=== PATIENT | female | born 1990 | race Caucasian/White ===

== ENCOUNTER 2020-07-21 02:29 | Emergency (ER) | payer OTHER ==
--- NOTE | 2020-07-21 02:51 | ERPHSYRPT ---
- History of Present Illness Time Seen by Provider: 07/21/20 02:50 Source: patient Exam Limitations: no limitations Patient Subjective Stated Complaint: Acid reflux. Left arm tingling. Physician History: She is 22 weeks having a flare-up of her GERD symptoms. She tried OTC antacids with little relief. NO chest pain or dyspnea. Only other c/o is left arm tingling, no head or neck pain. Full use of left arm, may have slept on it. Timing/Duration: hour(s) (few) Severity: moderate Modifying Factors: Improves With: medication (OTC antacids helping a little) Associated Symptoms: heartburn, other (tingling left arm) Allergies/Adverse Reactions: No Known Drug Allergies Allergy (Unverified 07/21/20 02:36) Home Medications: No Reportable Medications [No Reported Medications] 07/21/20 [History] Travel Risk - International Travel Have you traveled outside of the country in past 3 weeks: No - Coronavirus Screening Are you exhibiting any of the following symptoms?: No Close contact with a COVID-19 positive Pt in past 14-21 Days: No - Review of Systems Constitutional: No Symptoms Eyes: No Symptoms Ears, Nose, & Throat: No Symptoms Respiratory: No Symptoms Cardiac: No Symptoms Abdominal/Gastrointestinal: Other (GEERD) Genitourinary Symptoms: No Symptoms Musculoskeletal: No Symptoms Skin: No Symptoms, Rash Neurological: Parasthesia (left arm, partial) Psychological: No Symptoms Endocrine: No Symptoms Hematologic/Lymphatic: No Symptoms Immunological/Allergic: No Symptoms All Other Systems: Reviewed and Negative - Past Medical History Pertinent Past Medical History: No Neurological History: No Pertinent History ENT History: No Pertinent History Cardiac History: No Pertinent History Respiratory History: No Pertinent History Endocrine Medical History: No Pertinent History Musculoskeletal History: No Pertinent History GI Medical History: GERD History: No Pertinent History Psycho-Social History: No Pertinent History Female Reproductive Disorders: No Pertinent History - Past Surgical History Past Surgical History: No - Social History Smoking Status: Never smoker Significant Family History: no pertinent family hx - Nursing Vital Signs Nursing Vital Signs: Initial Vital Signs Pulse Rate 90 07/21/20 02:36 Respiratory Rate 18 07/21/20 02:36 Blood Pressure 140/86 07/21/20 02:36 O2 Sat by Pulse Oximetry 98 07/21/20 02:36 Pain Scale Pain Intensity 3 - Physical Exam General Appearance: no apparent distress, alert, anxiety Eye Exam: PERRL/EOMI Ears, Nose, Throat Exam: normal ENT inspection Neck Exam: normal inspection, non-tender Respiratory Exam: normal breath sounds Cardiovascular Exam: regular rate/rhythm, normal heart sounds Gastrointestinal/Abdomen Exam: soft, normal bowel sounds, other (gravid) Pelvic Exam: not done Rectal Exam: not done Back Exam: normal inspection Extremity Exam: normal inspection Neurologic Exam: alert, oriented x 3, cooperative Skin Exam: normal color, warm, dry Lymphatic Exam: No adenopathy SpO2 Interpretation: normal O2 Delivery: Room Air - Course Nursing assessment & vital signs reviewed: Yes Ordered Tests: Medication Summary Discontinued Medications Generic Name Dose Route Start Last Admin Trade Name Harshil PRN Reason Stop Dose Admin Famotidine 40 mg 07/21/20 03:01 07/21/20 03:11 Pepcid 20 Mg PO 07/21/20 03:02 40 mg STAT ONE Administration Famotidine Confirm 07/21/20 03:11 Pepcid 20 Mg Administered 07/21/20 03:12 Dose 40 mg .ROUTE .[employer] ONE - Progress Progress Note: 07/21/20 03:09 GERD symptoms in second trimester . She declined labs. Since OTC antacids not helping, gave pepcid. Mild left arm paresthesias. Suspect that she likely slept on the arm. Normal motor and sensory exam. NVI Counseled pt/family regarding: diagnosis, need for follow-up - Departure Departure Disposition: Home Clinical Impression: Arm paresthesia, left GERD (gastroesophageal reflux disease) Qualifiers: Esophagitis presence: without esophagitis Qualified Code(s): K21.9 - Gastro- esophageal reflux disease without esophagitis Condition: Stable Critical Care Time: No Referrals: LINDA ESTES NP [Primary Care Provider] - Instructions: Acid Reflux and GERD in Adults (DC) Additional Instructions: Pepcid is safe during , along with OTC antacids. Recheck with your OB Dr. The left arm symptoms should improve on their own, tylenol is safe to take if needed.
[2020-07-21] MEDS ORDERED: Pepcid 20 MG PO ONE (03:01)
[2020-07-21] MEDS ORDERED: Pepcid 20 MG ONE (03:11)
[2020-07-21 03:23] VITALS: BP 112/75; PULSE 86; O2SAT 97
== END 2020-07-21 03:27 | disposition home or self-care (01) ==
LOC: ED 02:29
DX: R20.2 Paresthesia of skin (principal); K21.9 Gastro-esophageal reflux disease without esophagitis
CPT/HCPCS: 99283; A9270-GY

== ENCOUNTER 2020-10-13 13:47 | Observation (INO) | payer OTHER ==
[2020-10-13 15:04] VITALS: BP 116/61; PULSE 88
== END 2020-10-13 14:45 | disposition home or self-care (01) ==
LOC: OB 13:47
PROVIDERS: ADMIT Obstetrics & Gynecology; ATTEND Obstetrics & Gynecology
DX: Z34.83 Encounter for supervision of other normal pregnancy, third trimester (principal); Z3A.34 34 weeks gestation of pregnancy
CPT/HCPCS: 59025; G0378

== ENCOUNTER 2020-10-20 09:02 | Observation (INO) | payer OTHER ==
[2020-10-20 09:34] VITALS: BP 122/67; PULSE 111
== END 2020-10-20 09:55 | disposition home or self-care (01) ==
LOC: OB 09:02
PROVIDERS: ADMIT Obstetrics & Gynecology; ATTEND Obstetrics & Gynecology
DX: Z34.83 Encounter for supervision of other normal pregnancy, third trimester (principal); Z3A.35 35 weeks gestation of pregnancy
CPT/HCPCS: 59025; G0378

== ENCOUNTER 2020-10-27 08:53 | Observation (INO) | payer OTHER ==
[2020-10-27 09:19] VITALS: BP 121/71; PULSE 96
--- NOTE | 2020-10-27 11:46 | XRAY ---
Indication: growth. Two-dimensional OB ultrasound performed. Comparison: 2020. Again there is a single viable intrauterine in cephalic presentation. heart rate 147 BPM. 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 Posterior placenta without abruption/previa. BPD measures 9.27 cm corresponding to 37 weeks 5 days. HC measures 32.81 cm corresponding to 37 weeks 2 days. AC measures 32.32 cm corresponding to 36 weeks 2 days. FL measures 6.99 cm corresponding to 35 weeks 6 days. Estimated weight 6 lbs. 7 oz., +/- 1 pound 0 ounces. Approximately 63 percentile. SUSAN is 14.5 cm. Impression: 1. Again single viable intrauterine with mean gestational age 36 weeks 6 days. Normal progression of . 2. Stable incidental nuchal cord and stable head lemon sign commonly associated with Chiari II malformation and spina bifida.
== END 2020-10-27 10:15 | disposition home or self-care (01) ==
LOC: EDSTATUS 08:53 → OB 08:54
PROVIDERS: ADMIT Obstetrics & Gynecology; ATTEND Obstetrics & Gynecology
DX: Z34.83 Encounter for supervision of other normal pregnancy, third trimester (principal); Z3A.36 36 weeks gestation of pregnancy
CPT/HCPCS: 59025; 76816; G0378

== ENCOUNTER 2020-11-03 09:06 | Observation (INO) | payer OTHER ==
[2020-11-03 09:45] VITALS: BP 120/78; PULSE 105
== END 2020-11-03 10:05 | disposition home or self-care (01) ==
LOC: OB 09:06
PROVIDERS: ADMIT Obstetrics & Gynecology; ATTEND Obstetrics & Gynecology
DX: Z34.83 Encounter for supervision of other normal pregnancy, third trimester (principal); Z3A.37 37 weeks gestation of pregnancy
CPT/HCPCS: 59025; G0378

== ENCOUNTER 2020-11-07 01:36 | Observation (INO) | payer OTHER ==
[2020-11-07 02:00] LABS: Appearance CLEAR (CLEAR); Bilirubin NEGATIVE (NEGATIVE); Blood NEGATIVE Ery/ul (0-5); Epithelial Cells RARE /HPF (FEW); Glucose NEGATIVE (NEGATIVE); Ketones NEGATIVE (NEGATIVE); Leukocyte Esterase TRACE (NEGATIVE); Mucus SLIGHT /HPF (NEGATIVE); Nitrite NEGATIVE (NEGATIVE); Protein,Urine Dip NEGATIVE (Negative); Specific Gravity 1.018 (1.005-1.025); Urobilinogen NEGATIVE mg/dL (0-1)
[2020-11-07 02:13] LABS: Amphetamine,Urine NEGATIVE (NEGATIVE); Barbiturate,Urine NEGATIVE (NEGATIVE); Benzodiazepine,Urine NEGATIVE (NEGATIVE); Cocaine,Urine NEGATIVE (NEGATIVE); Methadone,Urine NEGATIVE (NEGATIVE); Opiate,Urine NEGATIVE (NEGATIVE); PCP,Urine NEGATIVE (NEGATIVE); THC,Urine NEGATIVE (NEGATIVE)
[2020-11-07 04:24] VITALS: BP 111/70; PULSE 101; O2SAT 100
== END 2020-11-07 04:45 | disposition home or self-care (01) ==
LOC: UNDOADMOB 01:36 → OB 01:36 → UNDODISOB 04:45
PROVIDERS: ADMIT Obstetrics & Gynecology; ATTEND Obstetrics & Gynecology
DX: Z34.83 Encounter for supervision of other normal pregnancy, third trimester (principal); Z3A.37 37 weeks gestation of pregnancy
CPT/HCPCS: 80307; 81001; G0378

== ENCOUNTER 2020-11-10 08:08 | Observation (INO) | payer OTHER ==
[2020-11-10 08:52] VITALS: BP 123/66; PULSE 97
== END 2020-11-10 09:00 | disposition home or self-care (01) ==
LOC: OB 08:08
PROVIDERS: ADMIT Obstetrics & Gynecology; ATTEND Obstetrics & Gynecology
DX: Z34.83 Encounter for supervision of other normal pregnancy, third trimester (principal); Z3A.38 38 weeks gestation of pregnancy
CPT/HCPCS: 59025; G0378

== ENCOUNTER 2024-03-20 07:54 | Day surgery (SDC) | payer OTHER ==
[~2024-03-20 07:54] MED LIST: Lactated Ringers 1,000 ML IV ONE
[2024-03-20 08:06] LABS: HCG URINE TEST NEGATIVE (NEGATIVE)
[2024-03-20] MEDS ORDERED: CEFAZOLIN 2 GM/100 ML NaCl 2 GM/100 ML IVPB IV ONE (08:06)
[2024-03-20] MEDS ORDERED: Lactated Ringers 1,000 ML IV ONE (08:06)
[2024-03-20 08:20] VITALS: O2SAT 98
[2024-03-20] MEDS: CEFAZOLIN 2 GM/100 ML NaCl 2 GM/100 ML IVPB IV SCH (08:28)
[2024-03-20] MEDS: Lactated Ringers 1,000 ML IV SCH (08:29)
[2024-03-20] MEDS ORDERED: ASTRINGYN 8 GM TP ONE (09:25)
[2024-03-20] MEDS ORDERED: XYLOCAINE 1%/Epi 1:100000 MDV 20 ML ONE (09:25)
[2024-03-20] MEDS ORDERED: SUBLIMAZE 100 MCG/2 ML ONE ×2 (09:46→10:18)
[2024-03-20] MEDS ORDERED: Zofran 4 MG/2 ML VIAL ONE (09:52)
[2024-03-20] MEDS ORDERED: DIPRIVAN 200 MG/20 ML IV ONE (09:52)
[2024-03-20] MEDS ORDERED: Decadron 4 MG INJ ONE (09:52)
[2024-03-20] MEDS ORDERED: TORAdol 30 mg Injection ONE ×2 (10:06→11:18)
[2024-03-20] MEDS ORDERED: Hydromorphone 1 mg/ml Injection ONE (10:19)
[2024-03-20 11:32] VITALS: RESP 16
[2024-03-20 11:45] VITALS: BP 126/86; PULSE 90; TEMP 98.6
--- NOTE | 2024-03-22 00:27 | OP ---
SURGERY DATE/TIME: 03/20/2024 [id number] PREOPERATIVE DIAGNOSIS: Severe cervical dysplasia. POSTOPERATIVE DIAGNOSIS: Severe cervical dysplasia. PROCEDURE: Loop electrosurgical excision procedure otherwise known as LEEP. SURGEON: Chace Benavides D.O. FIRE MARSHAL: Drea. ANESTHESIA: General. ESTIMATED BLOOD LOSS: Minimal. COMPLICATIONS: None. FINDINGS: The risks, benefits, indications, and alternatives of the procedure were reviewed with the patient prior to the procedure. Patient understood the risk of infection, bleeding, pelvic infection, uterine perforation, pelvic infection, thromboembolic disorder associated with this surgery, as well as anorgasmia associated with the procedure and desires to have the surgery as a possible means to alleviate her current medical condition. DESCRIPTION OF PROCEDURE AND FINDINGS: At this point, patient was taken to the operating room, given general sedation, placed in the dorsal lithotomy position, prepped and draped in the usual sterile fashion. A coated bivalve speculum was then placed in the patient's vagina, and the cervix was then circumferentially injected with 1% lidocaine with epinephrine and approximately 5 mL was used. From this point, the loop instrument was then used and with the motion of right to left, the ectocervical tissue was excised with a depth of 7 to 8 mm of ectocervical tissue was excised without complication and an additional 2 to 3 mm of endocervical top hat was additionally excised in a similar fashion. From this point, the loop room clerk ball was placed on the surface of the cervix for coagulation and at this point hemostasis was obtained. From this point, there was no bleeding that was noted from her cervix. All instruments were then removed from the patient's vaginal region. The patient was then taken out of the dorsal lithotomy position, was taken out of anesthesia, and was then taken to the recovery room in stable condition. All instruments and laps were accounted for x2.
== END 2024-03-20 12:03 | disposition home or self-care (01) ==
LOC: SDC 07:54
PROVIDERS: ATTEND Obstetrics & Gynecology
DX: D06.9 Carcinoma in situ of cervix, unspecified (principal)
CPT/HCPCS: 81025; J0690; J1100; J1170; J1885; J2405; J2704; J3010; A9270-GY

== ENCOUNTER 2024-08-17 06:29 | Day surgery (SDC) | payer OTHER ==
[2024-08-17 06:41] VITALS: RESP 18
[2024-08-17 06:41] LABS: HCG URINE TEST NEGATIVE (NEGATIVE)
[2024-08-17] MEDS: Lactated Ringers 1,000 ML IV SCH (06:46)
[2024-08-17] MEDS: Pepcid 20 MG VIAL IV ONE (07:14)
[2024-08-17] MEDS ORDERED: propofoL IV ONE ×2 (07:57→08:09)
[2024-08-17] MEDS ORDERED: Versed 2 MG/2 ML Injection ONE (07:57)
[2024-08-17 09:17] VITALS: BP 136/84; PULSE 86; TEMP 97.4
[2024-08-17 09:20] VITALS: O2SAT 100
--- NOTE | 2024-08-20 13:34 | OP ---
SURGERY DATE/TIME: 08/17/2024 [id number] PREOPERATIVE DIAGNOSIS: Chronic constipation, changing for the worse recently. POSTOPERATIVE DIAGNOSIS: Normal colon. PROCEDURE: Colonoscopy. SURGEON: Barney Cuellar MD ANESTHESIA: Medications were given by the anesthesia department. INDICATIONS: The patient is a 33-year-old white female who presents now with having an episode of severe right-sided abdominal pain after having a bowel movement. The patient reports she about a year ago began having less frequent bowel movements, having possibly one every 3 to 4 days, and she has been taking senna and Colace together to try to help keep her bowels moving. The patient was felt the need to have endoscopic evaluation. She was apprised of the risks of the procedure including risk of perforation, phlebitis, untoward reaction to medication, bleeding, and missed lesions. The patient verbalized her understanding and desire to have procedure performed. DESCRIPTION OF PROCEDURE AND FINDINGS: The patient was given medication by the anesthesia department. She had continuous pulse oximetry, ECG monitoring, and intermittent blood pressure monitoring during the examination. She was placed in the left lateral decubitus position. Digital rectal examination was performed and revealed normal anal sphincter tone and no masses. The flexible Olympus videocolonoscope was used to intubate the rectum. A view of the colon was developed sequentially to the cecum. Upon insertion and withdrawal, including retroflexed view in the rectum, no mucosal lesions were encountered. The scope was removed from the patient, who tolerated the procedure well and was sent back to outpatient recovery in good condition. The prep was noted to be fair to good.
== END 2024-08-17 09:21 | disposition home or self-care (01) ==
LOC: SDC 06:29
PROVIDERS: ATTEND Family Medicine
DX: K59.09 Other constipation (principal)
CPT/HCPCS: 81025; J2250; J2704